=== PATIENT | female | born 1965 | race Caucasian/White ===

== ENCOUNTER 2019-02-27 06:19 | Inpatient (IN) | payer OTHER ==
[2019-02-16 09:06] LABS: HEMOGLOBIN 12.8 gm/dL (12.0-15.0); PLATELET COUNT* 259 thou/uL (150-400)
[2019-02-16 09:07] LABS: ABSOLUTE BASOPHILS 0.1 thou/uL (0.0-0.2); ABSOLUTE EOSINOPHILS 0.2 thou/uL (0.0-0.7); ABSOLUTE LYMPHOCYTES 1.7 thou/uL (0.8-5.3); ABSOLUTE MONOCYTES 0.3 thou/uL (0.0-1.2); ABSOLUTE NEUTROPHILS 3.9 thou/uL (1.6-8.1); BASOPHILS 1.4 %; EOSINOPHILS 3.9 %; HEMATOCRIT 38.3 % (37.0-47.0); LYMPHOCYTES 27.3 %; MCH 28.7 pg (26.0-34.0); MCHC 33.5 g/dL (28.0-37.0); MCV 85.6 fL (80.0-100.0); MONOCYTES 4.6 %; MPV 9.6 fl. (7.2-11.1); NUCLEATED RBCS 0 /100WBC; POLYS 62.8 %; RBC 4.47 mil/uL (4.20-5.00); RDW-CV 15.2 % (10.5-14.5); WBC 6.2 thou/uL (4.0-11.0)
[2019-02-16 09:13] LABS: CALCIUM 9.2 mg/dL (8.5-10.1); CREATININE 0.8 mg/dL (0.6-1.3); POTASSIUM 3.4 mmol/L (3.5-5.1)
[2019-02-16 09:15] LABS: PROTIME 10.2 Seconds (9.20-11.50)
[2019-02-16 09:18] LABS: ALBUMIN 3.5 g/dL (3.4-5.0); TOTAL BILIRUBIN 0.3 mg/dL (<0.1-1.0); TOTAL PROTEIN 7.6 g/dL (6.4-8.2)
[2019-02-16 10:36] LABS: ESR (SEDRATE) 33 mm/hr (0-30)
[2019-02-17 02:08] LABS: GLYCOHEMOGLOBIN (HGB A1C) 5.7 % (4.8-5.6)
[~2019-02-27] VITALS: Ht 165.1 cm; Wt 117.5 kg
[~2019-02-27 06:19] MED LIST: ADULT ASPIRIN R81 MG PO; IBU400 MG PO; LISINOPRIL-HCT1 EAC1 PO; PRENATAL PO; PROAIR HFA8.5 GM INH; VITAMIN B122500 MCG PO
[2019-02-27] MEDS ORDERED: LIPITOR 20 MG T20 M1 PO (06:20)
[2019-02-27] MEDS ORDERED: FLOVENT DISKUS50 MCG INH (08:14)
[2019-02-27 08:20] VITALS: BP 151/78
[2019-02-27 16:45] VITALS: BP 105/65
--- NOTE | 2019-02-27 20:37 | NUR ---
I ASSUMED CARE OF THE PATIENT A POST OP TRANSFER FROM PACU. SHE ARRIVED AROUND 1630 AND A[place]A CALLED ME REPORT. KAMALJIT DELIVERED THE PATIENT. BED IS IN THE LOW LOCKED POSITION AND CALL LIGHT IS IN REACH. HOURLY ROUNDING WAS COMPLETED AND PATIENT NEEDS ARE MET. PAIN IS DENIED, BUT BLOCK IS STILL EFFECTIVE. IS AT THE BEDSIDE. SHE IS ALERT AND ORIENTED X4 AND SHE IS USING ICE. WILL CONTINUE TO MONITOR.
[2019-02-27 21:06] VITALS: BP 99/65
[2019-02-28] VITALS: BP 124/82
[2019-02-28 04:00] VITALS: BP 116/80
--- NOTE | 2019-02-28 05:00 | NUR ---
PATIENT DID NOT REQUEST PAIN MEDICATION ENTIRE SHIFT. SHE DID NOT TRY TO GET UP AND USED BEDPAN ALL SHIFT. URINE OUTPUT IS PLENTY. HAD 2 DOSES OF ZOSYN AND FLUIDS ALL NIGHT. PLAN IS TO MAINTAIN PAINMANAGEMENT AND FOR HER TO WORK WITH THERAPY TO D/C HOME. WILL CONTINUE TO FOLLOW PLAN OF CARE.
[2019-02-28 05:17] LABS: HEMATOCRIT 31.2 % (37.0-47.0); HEMOGLOBIN 10.2 gm/dL (12.0-15.0)
[2019-02-28 07:30] VITALS: BP 124/62
--- NOTE | 2019-02-28 09:19 | NUR ---
RECIEVED O.T. EVAL AND TX ORDERS. WILL DEFER TO P.T. AT THIS TIME. PLEASE ORDER FURTHER O.T. SERVICES IF NEEDED.
--- NOTE | 2019-02-28 15:00 | NUR ---
SPOKE WITH PT.AND . SHE SAID SHE FELT LIKE SHE NEEDED TO STAY ANOTHER NIGHT IN HOSPITAL DUE TO PAIN CONTROL AND DIDN'T FEEL COMFORTABLE IN THERAPY YET. SHE HAS A FWW FROM HOME WITH HER AT HOSPITAL. HER WLL BE WITH HER TO ASSIST AT HOME. SHE WOULD LIKE TO DO HOME HEALTH FIRST AND THEN OUTPT THERAPY AFTER F/U WITH .SHE DID NOT HAVE A PREFERENCE ,ONLY THAT THEY ACCEPT HER INSURANCE. ELIQUIS PRESCRIPTION CALLED IN WRITTEN TO [facility]. COPAY WAS $31. INFORMED PT.
[2019-02-28 16:00] VITALS: BP 115/67
--- NOTE | 2019-02-28 18:06 | NUR ---
ASSUMED CARE OF PATIENT AT APPROX 0730. ALERT AND ORIENTED X4. ASSESSMENT COMPLETED AND CHARTED. VSS ON ROOM AIR. PAIN MANAGED WITHORAL PAIN MEDICATIONS. PATIENT HAVING NAUSEA AND VOMITING WITH OXY IR, PAGED DR SANTIAGO AND HE ADDED NORCO. ZOFRAN GIVEN TO ALLEVIATE NAUSE AND VOMITING. PATIENT UP WITH THERAPIES AND PROGRESSING TOWARD GOALS. FALL PRECAUTIONS IN PLACE. CALL LIGHT WITHIN REACH. HOURLY ROUNDS COMPLETED. NURSING WILL CONTINUE TO MONITOR.
[2019-03-01 05:28] LABS: HEMATOCRIT 29.8 % (37.0-47.0)
--- NOTE | 2019-03-01 07:03 | NUR ---
PATIENT HAS SLEPT OFF AND ON DURING THE NIGHT. VSS ON RA. PAIN WELL CONTROLLED. MEDICATIONS GIVEN ORDERED AND CHARTED. ASSESSMENT CHARTED. PATIENT DID HAVE SOME SLIGHT NAUSEA DURING THE EARLIER PART OF THE NIGHT. NAUSEA MEDICATIONS GIVEN AND HELP SUBSIDE NAUSEA. PATIENT UP WITH ASSIST X 1 WITH GAITBELT AND WALKER TO THE BATHROOM. DRESSING TO RIGHT KNEE IS C/D/I. PATIENT INSTRUCTED TO USE CALL LIGHT WHEN NEEDING ASSISTANCE. HOURLY ROUNDS MADE. PATIENT INSTRUCTED TO USE CALL LIGHT WHEN NEEDING ASSISTANCE. WILL CONTINUE WITH PLAN OF CARE AND NURSING TO MONITOR.
[2019-03-01 07:40] VITALS: BP 145/85
[2019-03-01] MEDS ORDERED: ELIQUIS2.5 MG PO (11:07)
[2019-03-01] MEDS ORDERED: COLACE100 MG PO (11:08)
[2019-03-01] MEDS ORDERED: TRAMADOL 50 MG50 MG PO (11:09)
[2019-03-01] MEDS ORDERED: OXYCODONE HCL 55 MG PO (11:10)
[2019-03-01 11:11] VITALS: BP 145/85
--- NOTE | 2019-03-01 11:30 | NUR ---
SPOKE WITH PT.AND . SHE SAID SHE IS READY TO GO HOME TODAY. SHE WOULD LIKE HER ELIQUIS CALLED INTO [facility] IN [place]. SHE SAID HER PHARMACY IN [place] SAID THEIR ELIQIUS WAS ON BACK ORDER. CALLED IN ELIQUIS WRITTEN TO [facility] IN [place]. ALSO WAS ABLE TO CALL IN TRAMADOL FOR PT. SHE REQUESTED. [facility] WAS OON FOR HER INSURANCE. SHE WOULD HAVE TO PAY 50% OF BILL. CM CALLED [facility] . THEY DID TAKE HER INSURANCE AND GO TO [place]. FAXED REFERRAL INFORMAITON AND ORDERS TO KIRSTEN[facility] [phone]. THEY WILL CALL HER TO SET UP APPTS.
[2019-03-01 12:50] VITALS: BP 145/85
--- NOTE | 2019-03-01 14:11 | NUR ---
ASSUMED CARE OF PATIENT AT APPROX 0730. ALERT AND ORIENTED X4. ASSESSMENT COMPLETED AND CHARTED. VSS ON ROOM AIR. PAIN AND NAUSEA MUCH MORE CONTROLLED TODAY. PATIENT WORKED WITH THERAPIES TODAY AND PROGRESSED TOWARD GOALS. PATIENT DISCHARGED AT 1325 WITH ALL PERSONAL BELONGINGS, PRESCRIPTIONS AND DISCHARGE INFORMATION.
--- NOTE | 2019-03-02 09:24 | OP ---
[facility] [address] [place] [address] OPERATIVE REPORT Name: REJI MA Room: [address] IN M.R.#: [id number] Admission: 02/28/19 Attend Phys: Ty Blackmon Discharge: 03/01/19 Date of : 67 Report #: [id number] THIS REPORT FOR: //name// CC: HERB Stahl DICTATED BY: Reuben Ireland DO DATE OF SERVICE: 02/27/2019 PREOPERATIVE DIAGNOSIS: Right knee advanced degenerative joint disease. POSTOPERATIVE DIAGNOSIS: Right knee advanced degenerative joint disease. PROCEDURE PERFORMED: Right total knee arthroplasty. SURGEON: Oj Stahl DO SENIOR BUSINESS MANAGER: JERRICA Kerns. First, assist was required for this case for positioning, exposure and closure. SECOND SUPERVISOR BLUEPRINTING AND PHOTOCOPY: Reuben Ireland DO ANESTHESIA: Spinal with sedation. ESTIMATED BLOOD LOSS: 150 mL. COMPLICATIONS: None. POSTOPERATIVE PLAN: The patient is stable. DISPOSITION: To PACU. ANTIBIOTICS: Two grams of Ancef IV preoperatively. ORTHOPEDIC IMPLANTS: Biomet Vanguard total knee system was utilized with the following components. 1. Size 55 mm PS femoral component. 2. Size 71 mm tibial plate. 3. A 16 mm PS polyethylene insert. 4. A 28 mm all polyethylene patella. INDICATIONS: The patient is a pleasant 53-year-old female who has been followed in the outpatient orthopedic clinic regarding longstanding right knee pain. She has tried and failed conservative care including corticosteroid injections, NSAIDs, activity modifications, attempted weight loss, home exercise program. [facility] [address] [place] [address] OPERATIVE REPORT Name: REJI MA Room: [address] IN M.R.#: [id number] Admission: 02/28/19 Attend Phys: Ty Blackmon Discharge: 03/01/19 Date of : 67 Report #: [id number] Despite conservative care, she has had symptoms that have adversely affected her quality of life. We discussed further treatment including total knee arthroplasty. Risks, benefits, complications and alternatives of the procedure were discussed with the patient in detail. She wished to proceed. DESCRIPTION OF PROCEDURE: The patient was transferred to the operating suite and placed on the operating table in supine position. She was given the benefit of general anesthesia. A well-padded pneumatic tourniquet was placed on the right upper thigh. A timeout was taken to confirm the appropriate patient identification, operative site and procedure to be performed. All in the room were in agreement with timeout. The tourniquet was inflated to 300 mmHg. Total tourniquet time for this case was 53 minutes. Procedure began by performing an anterior midline incision longitudinally on the right knee. Dissection was carried down sharply to the level of the extensor mechanism. A fresh scalpel blade was then used to perform a medial parapatellar arthrotomy. The patella was everted and infrapatellar fat pad was sharply excised. Drill was then used to obtain femoral access for the intramedullary guide. The distal femoral cutting block was then pinned into position in 5 degrees of valgus and set to resect 10 mm of bone. The distal femoral cut was performed through the cutting block. Attention was then addressed to the tibia where the extramedullary guide was used to position our proximal tibial cutting block. We referenced the medial third of the tubercle, the tibial crest and the middle of the talus. We set the cutting block to resect 10 mm of bone off the high lateral side. Cutting block was pinned into position and the proximal tibial cut was performed. Extension block was then checked with the 10 mm block. This was found to be well balanced to varus and valgus. The knee was then flexed again. Attention was then addressed back to the femur where the AP sizer was used to measure the distal femur, it was size 55 mm. The 4-in-1 cutting block was then pinned into position. Anterior, posterior and chamfer cuts were performed through the 4-in-1 cutting block. During all of our bony resection, retractors were used to protect vital structures. The trial tibial tray was then sized to a size 71 mm. This was pinned into position in appropriate rotation. The trial femur was then malleted into place. A size 16 mm polyethylene was inserted. The knee was taken through range of motion and found to be well balanced in full extension, mid flexion and full flexion. There was an appropriate anterior drawer test at 90 degrees of flexion. The patella was everted and reamed using a cylindrical reamer. This was sized to 28 mm patella. The trial patella was positioned and the knee was again taken through range of motion. The patella was noted to track well. The trial components were then removed. The knee was thoroughly irrigated. The tibia was drilled and punched with the tibial tray, prior to removal of the [address] [address] OPERATIVE REPORT Name: REJI MA Room: M.106-P DIS IN M.R.#: [id number] Admission: 02/28/19 Attend Phys: Ty Blackmon Discharge: 03/01/19 Date of : 67 Report #: [id number] tibial trial. Cement was mixed on the back table. Orthopedic cocktail was injected in the posterior capsule. Cement was then applied to the cut surface of the bone as well as the back surfaces of our implants. Final implants were malleted into position and held in compression while the cement was hardened. The 16 mm final polyethylene demonstrated good range of motion and was well balanced in full extension, mid flexion and full flexion. The knee was irrigated one last time. Capsule was then closed using #1 Vicryl, followed by #1 running Stratafix. Subcutaneous tissue was closed using 2-0 Monocryl. Final skin closure was performed using a running 3-0 Stratafix followed by skin glue. Sterile dressing was applied. The patient was transferred to PACU in stable condition. Needle and sponge counts at the end of the procedure were correct x 2. ATTESTATION: Dr. Stahl was present and scrubbed in through the entirety of the procedure. <ELECTRONICALLY SIGNED> By: Oj Stahl DO 03/02/19 0924 1329 1401Robergui Stahl DO /hodan
== END 2019-03-01 13:25 | disposition home health service (06) | DRG 470 ==
LOC: M.SUR 06:19 → M.TBA 07:56 → M.ORTHSURG 07:56 → EDSTATUS 08:38 → M.SUR 08:40 → M.TBA 08:42 → M.ORTHSURG 16:23
PROVIDERS: Orthopaedic Surgery; ADMIT Internal Medicine
PROC: 0SRC0J9 Replacement of Right Knee Joint with Synthetic Substitute, Cemented, Open Approach (ICD-10-PCS; principal; 2019-02-28)
DX: M17.11 Unilateral primary osteoarthritis, right knee (principal); Z68.41 Body mass index [BMI] 40.0-44.9, adult; D62 Acute posthemorrhagic anemia; E78.5 Hyperlipidemia, unspecified; I10 Essential (primary) hypertension; E66.01 Morbid (severe) obesity due to excess calories; J45.909 Unspecified asthma, uncomplicated; G47.33 Obstructive sleep apnea (adult) (pediatric); Z88.2 Allergy status to sulfonamides; Z87.01 Personal history of pneumonia (recurrent)

== ENCOUNTER 2019-09-25 09:55 | Inpatient (IN) | payer OTHER ==
[2019-09-19 08:29] LABS: ABSOLUTE BASOPHILS 0.1 thou/uL (0.0-0.2); ABSOLUTE EOSINOPHILS 0.2 thou/uL (0.0-0.7); ABSOLUTE LYMPHOCYTES 1.7 thou/uL (0.8-5.3); ABSOLUTE MONOCYTES 0.4 thou/uL (0.0-1.2); ABSOLUTE NEUTROPHILS 3.6 thou/uL (1.6-8.1); BASOPHILS 1.2 %; EOSINOPHILS 3.7 %; HEMATOCRIT 38.5 % (37.0-47.0); HEMOGLOBIN 12.8 gm/dL (12.0-15.0); LYMPHOCYTES 28.3 %; MCH 28.9 pg (26.0-34.0); MCHC 33.2 g/dL (28.0-37.0); MCV 87.1 fL (80.0-100.0); MONOCYTES 6.7 %; MPV 9.7 fl. (7.2-11.1); NUCLEATED RBCS 0 /100WBC; PLATELET COUNT* 246 thou/uL (150-400); POLYS 60.1 %; RBC 4.42 mil/uL (4.20-5.00); RDW-CV 14.3 % (10.5-14.5); WBC 5.9 thou/uL (4.0-11.0)
[2019-09-19 08:36] LABS: APTT 28.2 Seconds (25.0-31.3); PROTIME 10.3 Seconds (9.20-11.50)
[2019-09-19 08:38] LABS: ALBUMIN 3.4 g/dL (3.4-5.0); CALCIUM 8.7 mg/dL (8.5-10.1); CREATININE 0.8 mg/dL (0.6-1.3); TOTAL BILIRUBIN 0.3 mg/dL (<0.1-1.0); TOTAL PROTEIN 7.9 g/dL (6.4-8.2)
[2019-09-19 10:04] LABS: ESR (SEDRATE) 35 mm/hr (0-30)
--- NOTE | 2019-09-19 13:32 | EKG ---
[place] [address] ELECTROCARDIOGRAM REPORT Name: LORENA MABI JAIR Room: [facility].#: [id number] Admission: Attend Phys: Oj Stahl DO Discharge: Date of : 67 Date of Service: 09/19/19832 Report #: [id number] THIS REPORT FOR: //name// [facility] Test Date: 2019-09-19 Test Time: 08:33:00 Pat Name: REJI MA Department: Room: Gender: Handyperson: : 1965 Requested By: Oj Stahl Order Number: [id number] Reading MD: Olvin Freedman Measurements Intervals [place] Rate: 64 P: 15 NM: 141 QRS: 27 QRSD: 105 T: 47 QT: 396 QTc: 409 Interpretive Statements Sinus rhythm No previous ECG available for comparison Electronically Signed On 09-19-2019 13:30:41 CDT by Olvin Freedman [email or web address] <ELECTRONICALLY SIGNED> By: Olvin Freedman MD, [facility] 09/19/19 1330 0833 0833 Olvin Freedman MD, FACC /EPI
[2019-09-20 02:08] LABS: GLYCOHEMOGLOBIN (HGB A1C) 5.9 % (4.8-5.6)
[~2019-09-25] VITALS: Ht 165.1 cm; Wt 117.5 kg
[~2019-09-25 09:55] MED LIST changes: +COLACE100 MG PO; +ELIQUIS2.5 MG PO; +FLOVENT DISKUS50 MCG INH; +LIPITOR 20 MG T20 M1 PO; +OXYCODONE HCL 55 MG PO; +TRAMADOL 50 MG50 MG PO
[2019-09-25] MEDS ORDERED: ACETAMINOPHEN500 M1 PO (10:44)
[2019-09-25 11:54] VITALS: BP 107/74
[2019-09-25 16:51] VITALS: BP 119/73
[2019-09-25 20:01] VITALS: BP 110/50
[2019-09-26] VITALS: BP 148/64
[2019-09-26 04:00] VITALS: BP 150/87
--- NOTE | 2019-09-26 06:49 | NUR ---
PATIENT HAS SLEPT OFF AND ON DURING THE NIGHT. VSS ON 2L 02 VIA NASAL CANNULA. MEDICATIONS GIVEN ORDERED AND CHARTED. ASSESSMENT CHARTED. DRESSING TO LEFT KNEE IS C/D/I, SCD'S AND NICOLA HOSE IN PLACE. ICE PACKS FILLED DURING THE NIGHT AND KEPT ON KNEE. PATIENT UP WITH ASSIST X 1 WITH GAITBELT AND WALKER TO [facility]. IV IN LEFT FOREARM- LR @ 80ML/HR. PATIENT INSTRUCTED TO USE CALL LIGHT WHEN NEEDING ASSISTANCE. HOURLY ROUNDS MADE. WILL CONTINUE WITH PLAN OF CARE AND NURSING TO MONITOR.
[2019-09-26 08:19] VITALS: BP 154/94
[2019-09-26 09:10] LABS: HEMATOCRIT 31.4 % (37.0-47.0); HEMOGLOBIN 10.7 gm/dL (12.0-15.0); MCH 29.4 pg (26.0-34.0); MCHC 34.1 g/dL (28.0-37.0); MCV 86.3 fL (80.0-100.0); MPV 8.9 fl. (7.2-11.1); RBC 3.64 mil/uL (4.20-5.00); RDW-CV 14.3 % (10.5-14.5); WBC 10.1 thou/uL (4.0-11.0)
[2019-09-26 09:37] LABS: ALBUMIN 2.9 g/dL (3.4-5.0); CREATININE 0.8 mg/dL (0.6-1.3); MAGNESIUM 1.8 mg/dL (1.8-2.4); TOTAL BILIRUBIN 0.4 mg/dL (<0.1-1.0); TOTAL PROTEIN 6.9 g/dL (6.4-8.2)
--- NOTE | 2019-09-26 15:00 | NUR ---
PT.UP IN CHAIR. PT.KNOWN FROM PREVIOUS R KNEE SURGERY. SHE LIVES WITH AND CHILDREN. HER WILL BE WITH HER 09/11 AND CAN ASSIST NEEDED. HAS A WALKER AT HOME. USED [facility] [employer] LAST TIME THEY TOOK HER INSURANCE AND WENT TO [place]. WOULD LIKE TO USE THEM AGAIN. ANISAJOSÉ MIGUEL IS [facility] IN [place]. CM WILL CALL IN PRESCRIPTION WRITTEN FOR [facility] TO CHECK COPAY. SHE PLANS ON DISCHARGE TOMORROW.
[2019-09-26 16:00] VITALS: BP 152/48
[2019-09-27 04:03] LABS: HEMATOCRIT 31.5 % (37.0-47.0); HEMOGLOBIN 10.6 gm/dL (12.0-15.0)
--- NOTE | 2019-09-27 07:00 | NUR ---
PATIENT SLEPT WELL DURING MOST OF THE NIGHT. VSS ON RA. MEDICATIONS GIVEN ORDERED AND CHARTED. PATIENT UP WITH ASSIST X 1 WITH GAITBELT AND WALKER TO THE [facility] [place]. DRESSING TO LEFT KNEE IS C/D/I, AND NICOLA HOSE AND SCD'S IN PLACE. IV IN LEFT FOREARM-SL. PATIENT INSTRUCTED TO USE CALL LIGHT WHEN NEEDING ASSISTANCE. HOURLY ROUNDS MADE. WILL CONTINUE WITH PLAN OF CARE AND NURSING TO MONITOR.
[2019-09-27 07:40] VITALS: BP 155/79
[2019-09-27] MEDS ORDERED: ELIQUIS2.5 MG PO (11:16)
[2019-09-27] MEDS ORDERED: TRAMADOL 50 MG50 MG PO (11:17)
[2019-09-27] MEDS ORDERED: OXYCODONE HCL 55 MG PO (11:18)
[2019-09-27 12:15] VITALS: BP 155/79
[2019-09-27] MEDS ORDERED: LIDOPATCH1 EACH TOP (12:28)
--- NOTE | 2019-09-27 14:42 | NUR ---
ASSUMED CARE OF PATIENT AT APPROX 0730. ALERT AND ORIENTED X4. ASSESSMENT COMPLETED AND CHARTED. VSS ON ROOM AIR. PAIN MANAGED WITH ORAL MEDICATIONS. PATIENT UP WITH ASSIST USING GAIT BELT AND WALKER TO THE BATHROOM. PATIENT DISCHARGED AT 1425 WITH ALL PERSONAL BELONGINGS, PRESCRIPTIONS AND DISCHARGE INFORMATION.
--- NOTE | 2019-09-27 15:45 | NUR ---
FAXED DISCHARGE ORDERS TO [facility] AND REFERRAL INFORMATION. PER [employer] INVESTIGATOR AT [facility],COPAY FOR ELIQUIS IS $35. PT INFORMED.
[2019-09-27 19:07] LABS: CK MACRO TYPE I 0 % (Not Observed); CK MACRO TYPE II 0 % (Not Observed); CPK BB (%) 0 % (0); CPK MM (%) 100 % (97-100)
[2019-09-28 08:12] LABS: CK TOTAL (MAYO) 62 U/L (32-182)
--- NOTE | 2019-10-02 15:25 | OP ---
[address] [address] OPERATIVE REPORT Name: REJI MA Room: [address] IN M.R.#: [id number] Admission: 09/25/19 Attend Phys: Ty Blackmon Discharge: 09/27/19 Date of : 67 Report #: [id number] THIS REPORT FOR: //name// cc: HERB BARLOW NP, HALEY E. NP ~ THIS REPORT FOR: //name// CC: HERB Sifuentes DATE OF SERVICE: 09/25/2019 ____ dictating an operative report on behalf of Dr. Oj Stahl DO PREOPERATIVE DIAGNOSIS: Left knee advanced osteoarthritis. POSTOPERATIVE DIAGNOSIS: Left knee advanced osteoarthritis. OPERATION PERFORMED: Left total knee arthroplasty. SURGEON: Oj Stahl DO. ASSISTANTS: Holly Burns PA-C; Juan Wells DO and Babak Perez DO. ESTIMATED BLOOD LOSS: 230 mL. ANTIBIOTICS: 2 g IV Ancef given within 1 hour of skin incision. ANESTHESIA: Spinal plus indwelling adductor canal block performed by Anesthesia plus local anesthesia into the posterior capsule. DRAINS: None. SPECIMENS: None. COMPLICATIONS: None. CONDITION: Stable. DISPOSITION: PACU to Orthopedic floor. OPERATIVE IMPLANTS: Include the Biomet momondoguard total knee system with the following size components: 1. A size 57.5 mm PS open box femoral component. 2. A size 67 mm fixed cruciate tibial baseplate. [facility] [address] [place] [address] OPERATIVE REPORT Name: REJI MA Room: [address] IN M.R.#: [id number] Admission: 09/25/19 Attend Phys: Ty Blackmon Discharge: 09/27/19 Date of : 67 Report #: [id number] 3. A size 28 mm asymmetrical patellar component, all of which were cemented. Also with the 12 mm posterior stabilized tibial bearing, 1 bag of Biomet bone cement was used for implantation. INDICATIONS FOR SURGERY: The patient is a pleasant 54-year-old female who is seen in Orthopedic Clinic regarding her longstanding left knee pain. Radiographs were consistent with severe degenerative changes with loss of joint space, subchondral sclerosis, osteophytic changes and a mild varus deformity. She had failed conservative treatment over the last several years, including activity modifications, bracing and multiple corticosteroid injections and anti-inflammatories by mouth. Despite trying these things, she has continued pain and debility; therefore, we did recommend left total knee arthroplasty. Risks, indications, and treatment alternatives have been reviewed with the patient. Her informed consent was obtained and attached to the chart. DESCRIPTION OF PROCEDURE: The patient was taken to the operating suite and placed on the operating table in a supine position. The patient was given spinal anesthesia by the Anesthesia team and sedated throughout the procedure. The well-padded tourniquet was placed on the left proximal thigh; however, this was not inflated during the procedure. Left lower extremity was then sterilely prepped and draped free in the usual fashion. Time-out was then performed to confirm the safety checklist has been completed and all the present OR personnel were in agreement. A longitudinal incision was made to the anterior aspect of the knee. Sharp dissection was then carried down through the skin and subcutaneous tissue down to the level of the extensor mechanism and knee capsule. A new blade was then used to make the standard medial parapatellar arthrotomy. Subperiosteal sleeve was developed off the medial tibial plateau. The patella was everted and the knee was hyperflexed. The infrapatellar fat pad was largely excised to improve visualization. Osteophytes were removed with a rongeur. Access was gained to the intramedullary canal with the large reamer. The intramedullary guide was then placed onto the femur and this was set to resect 9 mm and she did have a slight recurvatum deformity noted preoperatively and also 5 degrees of valgus. This cutting block was pinned into position. A cut was made through the capture block. The bony wafers were then removed. We then moved to the proximal tibia, aligning the extramedullary tibial guide in all planes and set to resect 8 mm from the lateral high side. The cut was then made through the capture block and a bony wafer was removed. Attention was then taken back to the distal tibia, which was sized from anterior to posterior, 3-degree external rotation holes were drilled. We also referenced the Whitesides line and transepicondylar access to ensure the correct positioning of the pin holes. The 4-in-1 cutting block was then impacted onto the distal femur and pinned into position. The cuts were then made through the capture block. Bony wafers were then removed. At this time, the remaining meniscal remnants were also excised with electrocautery as were the cruciate ligaments. The box cut was made through the box cut guide. Medial osteophytes were removed off the medial tibial plateau which improved the coronal balancing. Proximal tibia was [facility] [address] [place] [address] OPERATIVE REPORT Name: REJI MA Room: [address] IN Ham#: [id number] Admission: 09/25/19 Attend Phys: Ty Blackmon Discharge: 09/27/19 Date of : 67 Report #: [id number] appropriately sized and the tibial baseplate was pinned in the appropriate rotation. A femoral trial was also impacted onto the distal femur. Multiple sized tibial bearings were then trialed. Ultimately, a 12 mm spacer gave full range of motion and excellent stability throughout. The patella was found to have significant degenerative changes; therefore, we did proceed with resurfacing with the Ar reaming system. This left us with a nice flush cut surface. The peg holes were then drilled through the guide and a patellar trial was placed through full range of motion, found to be tracking appropriately. The trial patella and femoral components were then removed. The tibia was prepared for final implantation with the reamer and cruciform punch, which were then removed. The knee was then copiously irrigated. The anesthetic cocktail was injected into the posterior capsule. The bone cement was mixed on the back table and then pressurized by hand into the interstices of the bone and also applied to the undersurface of the final components. Final components were then impacted into position beginning with the tibia, followed by the femur and finally the patella, which was clamped into position. All the excess bone cement was sharply excised. Once again, a 12 mm trial bearing gave full range of motion and excellent stability; therefore, we did replace this with a final 12 mm spacer, which was locked into position with a locking bar. The knee was then placed in 90 degrees of flexion. A layered closure was performed beginning with #1 Vicryl suture in [id number] fashion throughout the extensor mechanism. This was then oversewn with #1 running Stratafix suture. Subcutaneous layer was reapproximated with 2-0 Monocryl in a buried fashion followed by running 3-0 Stratafix suture. Skin glue was applied to the incision and allowed to dry, followed by application of a Mepilex dressing and thigh-high NICOLA hose. The patient was found to have tolerated the procedure well with no apparent complications and sponge and needle counts reported correct x 2. She was transferred to PACU in stable condition. ATTESTATION: Dr. Oj Stahl was present for all critical aspects of surgery. <ELECTRONICALLY SIGNED> By: Oj Stahl DO 10/02/19 1525 1520 1625Oj Stahl DO /nt
--- NOTE | 2019-10-12 12:17 | NUR ---
During P2P Dr Gerda HYDE would not approve inpatient rate but stated the case can be billed as Observation. After BAKED AND GRAPHITE INSPECTOR review and discussion in Revenue Cycle Call, CBO to bill for Observation/Procedure.
== END 2019-09-27 14:25 | disposition home health service (06) | DRG 470 ==
LOC: M.PRE 09:55 → M.TBA 10:28 → M.ORTHSURG 10:28 → M.TBA 10:28 → M.PRE 11:21 → M.ORTHSURG 15:08
PROVIDERS: Internal Medicine; Orthopaedic Surgery; ADMIT Internal Medicine; ATTEND Internal Medicine
PROC: 0SRD0J9 Replacement of Left Knee Joint with Synthetic Substitute, Cemented, Open Approach (ICD-10-PCS; principal; 2019-09-25)
PROC: 3E0T3BZ Introduction of Anesthetic Agent into Peripheral Nerves and Plexi, Percutaneous Approach (ICD-10-PCS; principal; 2019-09-25)
DX: M17.12 Unilateral primary osteoarthritis, left knee (principal); Z68.41 Body mass index [BMI] 40.0-44.9, adult; R71.0 Precipitous drop in hematocrit; I10 Essential (primary) hypertension; E78.5 Hyperlipidemia, unspecified; E66.9 Obesity, unspecified; Z96.651 Presence of right artificial knee joint; Z98.891 History of uterine scar from previous surgery; Z87.01 Personal history of pneumonia (recurrent); Z03.818 Encounter for observation for suspected exposure to other biological agents ruled out; Z88.2 Allergy status to sulfonamides